=== PATIENT | male | born 1965 | race African-American/Black ===

== ENCOUNTER → 2020-04-07 | Outpatient (CLI) | payer BC ==
[2020-04-07 12:22] LABS: ABSOLUTE BASOPHILS 0.1 thou/uL (0.0-0.2); ABSOLUTE EOSINOPHILS 0.2 thou/uL (0.0-0.7); ABSOLUTE LYMPHOCYTES 1.6 thou/uL (0.8-5.3); ABSOLUTE MONOCYTES 0.3 thou/uL (0.0-1.2); ABSOLUTE NEUTROPHILS 1.5 thou/uL (1.6-8.1); BASOPHILS 1.5 %; EOSINOPHILS 6.3 %; HEMATOCRIT 39.6 % (42.0-52.0); HEMOGLOBIN 12.9 gm/dL (14.0-18.0); LYMPHOCYTES 42.5 %; MCH 24.4 pg (26.0-34.0); MCHC 32.6 g/dL (28.0-37.0); MCV 74.8 fL (80.0-100.0); MONOCYTES 8.8 %; MPV 6.9 fl. (7.2-11.1); NUCLEATED RBCS 0 /100WBC; PLATELET COUNT* 235 thou/uL (150-400); POLYS 40.9 %; RBC 5.29 mil/uL (4.50-6.00); RDW-CV 19.4 % (10.5-14.5); WBC 3.8 thou/uL (4.0-11.0)
[2020-04-07 12:34] LABS: ALBUMIN 3.7 g/dL (3.4-5.0); CALCIUM 8.7 mg/dL (8.5-10.1); CREATININE 1.3 mg/dL (0.6-1.3); POTASSIUM 3.9 mmol/L (3.5-5.1); TOTAL BILIRUBIN 0.5 mg/dL (<0.1-1.0); TOTAL PROTEIN 8.4 g/dL (6.4-8.2)
== END ==
LOC: M.RAD 11:48
PROVIDERS: Internal Medicine
DX: I50.41 Acute combined systolic (congestive) and diastolic (congestive) heart failure (principal); M54.5 Low back pain; G89.29 Other chronic pain; M25.551 Pain in right hip

== ENCOUNTER → 2020-08-08 | Outpatient (CLI) | payer BC | LOC: M.CT 12:52 | PROVIDERS: ATTEND Internal Medicine | DX: N28.1 Cyst of kidney, acquired (principal); J98.11 Atelectasis; K44.9 Diaphragmatic hernia without obstruction or gangrene; R19.5 Other fecal abnormalities; K42.9 Umbilical hernia without obstruction or gangrene; J84.10 Pulmonary fibrosis, unspecified ==